=== PATIENT | male | born 1995 | race Caucasian/White ===

== ENCOUNTER 2021-04-06 07:55 | Emergency (ER) | payer OTHER, SELFPAY ==
[2021-04-06 07:56] VITALS: BP 137/72; PULSE 72; RESP 18; TEMP 36.4; O2SAT 99; BMI 27.5
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
[2021-04-06] MEDS: iohexol 300 mg/mL 100 mL Btl IV (08:30)
[2021-04-06 08:33] LABS: Basophils % 0.4 %; Eosinophils # 0.2 10^3/uL (0.0-0.8); Eosinophils % 2.9 %; Hematocrit 48.3 % (42.0-52.0); Hemoglobin 16.3 g/dL (11.7-16.6); Mean Corpuscular HGB Conc 33.7 g/dL (30.0-36.0); Mean Corpuscular Hemoglobin 31.2 pg (28.0-34.0); Mean Corpuscular Volume 92.4 fL (80-94); Monocytes # 0.7 10^3/uL (0.2-0.9); Monocytes % 8.3 %; Neutrophils # 4.85 10^3/uL (1.8-7.7); Neutrophils % 62.1 %; Nucleated Red Blood Cells % 0 %; Platelet Count 218 10^3/cmm (130-400); Red Blood Count 5.23 10^6/uL (4.1-5.3); Red Cell Distribution Width 12.4 % (12.1-15.1); White Blood Count 7.8 10^3/uL (4.0-10.0)
[2021-04-06 09:01] LABS: Alanine Aminotransferase 27 U/L (0-41); Alkaline Phosphatase 74 IU/L (40-130); Anion Gap 10.9 (5-19); Aspartate Amino Transferase 28 U/L (0-40); Blood Urea Nitrogen 10 mg/dL (6-20); Calcium 9.1 mg/dL (8.5-10.5); Carbon Dioxide 26 mmol/L (22-29); Globulin 2.7 g/dL (1.3-4.6); Glomerular Filtration Rate 82.2 mL/min (90-130); Glucose 98 mg/dL (65-115); Osmolality Calculated 289 mOsm/kg (285-295); Total Bilirubin 0.4 mg/dL (0.15-1.2); Total Protein 6.8 g/dL (6.6-8.7)
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
[2021-04-06 09:02] LABS: Sodium 140 mmol/L (136-145)
[2021-04-06 09:03] LABS: Albumin Level 4.1 g/dL (3.5-5.2); Chloride 107 mmol/L (98-107); Potassium 3.9 mmol/L (3.5-5.1)
[2021-04-06] MEDS: HYDROcodone-acetaminophen 5-325 mg Tablet 1 TAB PO (10:49)
[2021-04-06] MEDS: promethazine 25 mg Tablet PO (10:49)
[2021-04-06 10:52] VITALS: BP 122/86; PULSE 66; RESP 18; O2SAT 98
== END 2021-04-06 10:50 | disposition home or self-care (01) ==
PROVIDERS: Emergency Provider Family Medicine
DX: Z04.1 Encounter for examination and observation following transport accident (principal); V89.2XXA Person injured in unspecified motor-vehicle accident, traffic, initial encounter
CPT/HCPCS: 70450; 71260; 72125; 74177; 80053; 85025; 99283; Q0169; Q9967

== ENCOUNTER 2022-07-01 08:29 | Emergency (ER) | payer OTHER, SELFPAY ==
[2022-07-01 08:44] VITALS: BP 170/93; PULSE 43; RESP 16; TEMP 36.4; O2SAT 99; BMI 25.0
--- NOTE | 2022-07-01 09:18 | CT_ITS ---
WS: [id number] CT HEAD TECHNIQUE: Noncontrast CT of the head obtained from the skullbase to the vertex. CLINICAL INFORMATION: sudden onset headache wi exertion COMPARISON: April 06, 2021 DLP: 1106.[address] scans at [facility] use at least one of these dose optimization techniques: automated e xposure control; mA and/or kV adjustment per patient size (includes targeted exams where dose is matc hed to clinical indication); or iterative reconstruction. FINDINGS: No evidence of intracranial hemorrhage or mass effect. Ventricular system and basal cisterns are cruz nt. No extra-axial fluid collections. No evidence of mass or mass effect. Normal young-white different iation. Mild mucosal thickening ethmoid air cells. Opacification RIGHT mastoid air cells. LEFT mastoid air ce lls well aerated. CT/CT head wo con* [id number] IMPRESSION: 1. No evidence of intracranial hemorrhage or mass effect. 2. Opacification RIGHT mastoid air cells. 3. No acute intracranial findings.
--- NOTE | 2022-07-01 09:22 | ED_ITS ---
HPI - Headache General: Chief Complaint: Headache Stated Complaint: Severe headache Time Seen by Provider: 07/01/22 08:39 Source: patient Mode of arrival: ambulatory History of Present Illness: 26-year-old male presents emergency room with complaint of headache for the last 2 days with nausea and vomiting. No recent trauma. Denies history of migraines. He is not on any anticoagulants. No recent trauma. MD elicited complaint: headache Onset (ago): minute(s) Location: frontal Severity: mild Quality & Timing: throbbing Exacerbating factors: none Relieving factors: nothing Associated symptoms: Deny chest pain, confusion, cough, diaphoresis, eye pain, eye redness, fever(s), lightheadedness, loss of vision, malaise, nausea, neck stiffness, numbness, paresthesias, photophobia, pre-syncope, rash, seizures, short of breath, sound sensitivity, syncope, vomiting or weakness Treatments prior to arrival: none Review of Systems Const: Denies: fever(s), chills, fatigue, malaise or diaphoresis ENMT: Denies: throat pain, ear or mastoid pain, nasal discharge or nasal conge stion Card: Denies: chest pain, lightheadedness, syncope or pre-syncope Resp: Denies: dyspnea GI: Denies: abdominal pain, nausea or vomiting : Denies: flank pain, difficulty urinating, dysuria, urinary frequency or urinary urgency Skin/Breast: Denies: rash Neuro: Denies: confusion PFS ED PFSH: Medical History (Updated 07/07/22 @ 16:32 by Teto Tripp DO) No significant past medical history Surgical History (Updated 07/07/22 @ 16:32 by Teto Tripp DO) No pertinent past surgical history Physical Exam 2 Const: COMMON NORMALS: no acute distress GENERAL APPEARANCE: cooperative and comfortable ORIENTATION/CONSCIOUSNESS: Yes awake, Yes oriented to person, Yes oriented to place and Yes oriented to time HENMT: COMMON NORMALS: normocephalic, atraumatic, hearing grossly normal bilaterally, external ears normal, EAC's normal, TM's normal bilaterally, Normal nasal mucous membranes and turbinates present, moist oral mucous membranes and oropharynx normal HEAD & SCALP: normocephalic and atraumatic NOSE: Normal nasal mucous membranes and turbinates present EXTERNAL EAR: Yes external ears normal EXTERNAL AUDITORY CANAL: EAC's normal TYMPANIC MEMBRANE: TM's normal bilaterally Eye: COMMON NORMALS: Equal, round and reactive pupils present, EOMs intact bilaterally, conjunctivae normal and no scleral icterus CONJUNCTIVA: Yes conj unctivae normal PUPIL: Yes Equal, round and reactive pupils present DIRECT OPHTHALMOSCOPY: No photophobia Neck/C-Spine: COMMON NORMALS: full ROM, no lymphadenopathy, supple and no JVD Lymph: LYMPHATIC: no lymphadenopathy noted and no lymphedema noted Resp: COMMON NORMALS: normal respiratory effort, No retractions, No use of accessory muscles and clear to auscultation bilaterally AUSCULTATION: clear to auscultation bilaterally Cardio: COMMON NORMALS: no JVD, regular rate, regular rhythm and No murmurs present (Cardio) RATE: regular rate RHYTHM: regular rhythm GI: COMMON NORMALS: Soft to palpation and No hepatosplenomegaly present AUSCULTATION: Yes normoactive bowel sounds PALPATION: Yes Soft to palpation, No Tenderness to palpation present (GI), No Guarding due to palpation present (GI) and Yes No hepatosplenomegaly present Extremity: COMMON NORMALS: normal to inspection, capillary refill normal, no clubbing, cyanosis or edema, no calf tenderness and no pedal edema Neuro: SENSORIUM/ORIENTATION: Yes oriented to person, Yes oriented to place and Yes oriented to time Skin: COMMON NORMALS: no rashes or lesions noted GENERAL SKIN EXAM: no r ashes or lesions noted Course Vital Signs: Vital signs: Vital Signs Temperature 97.6 F 07/01/22 08:44 Pulse Rate 72 07/01/22 14:22 Respiratory Rate 14 07/01/22 14:22 Blood Pressure 132/72 07/01/22 14:22 Pulse Oximetry 98 07/01/22 09:30 MDM - Headache Medical Decision Making Symptoms improved. Discharge home follow-up with primary care Medical Records I reviewed the patient's medical records. Lab Data I reviewed the patient's lab results. : 07/01/22 09:45 07/01/22 09:[address] 07/01/22 09:18 IMPRESSION: 1. No evidence of intracranial hemorrhage or mass effect. 2. Opacification RIGHT mastoid air cells. 3. No acute intracranial findings. Head/Neck CTA 07/01/22 11:30 IMPRESSION: Normal CTA head neck Laboratory Results WBC 8.2 10^3/uL (4.0-10.0) 07/01/22 09:45 RBC 5.87 10^6/uL (4.1-5.3) H 07/01/22 09:45 Hgb 18.3 g/dL (11.7-16.6) H 07/01/22 09:45 Hct 54.0 % (42.0-52.0) H 07/01/22 09:45 MCV 92.0 fl (80-94) 07/01/22 09:45 MCH 31.2 pg (28.0-34.0) 07/01/22 09:45 MCHC 33.9 g/dL (30.0-36.0) 07/01/22 09:45 RDW 12.7 % (12.1-15.1) 07/01/22 09:45 Plt Count 239 10^3/cmm (130-400) 07/01/22 09:45 MPV 11.3 fL (7.4-10.4) H 07/01/22 09:45 Neut % (Auto) 60.4 % 07/01/22 09:45 Lymph % (Auto) 28.9 % 07/01/22 09:45 [place] % (Auto) 7.2 % 07/01/22 09:45 Eos % (Auto) 2.6 % 07/01/22 09:45 Baso % (Auto) 0.4 % 07/01/22 09:45 Neut # (Auto) 4.98 10^3/uL (1.8-7.7) 07/01/22 09:45 Lymph # (Auto) 2.4 10^3/uL (0.8-4.8) 07/01/22 09:45 [place] # (Auto) 0.6 10^3/uL (0.2-0.9) 07/01/22 09:45 Eos # (Auto) 0.2 10^3/uL (0.0-0.8) 07/01/22 09:45 Baso # (Auto) 0.0 10^3/uL (0.0-0.1) 07/01/22 09:45 Nucleated RBC % (auto) 0 % 07/01/22 09:45 Nucleated RBCs # 0.0 /100WBC 07/01/22 09:45 Sodium 140 mmol/L (136-145) 07/01/22 09:45 Potassium 4.0 mmol/L (3.5-5.1) 07/01/22 09:45 Chloride 103 mmol/L (98-107) 07/01/22 09:45 Carbon Dioxide 24 mmol/L (22-29) 07/01/22 09:45 Anion Gap 17.0 (5-19) 07/01/22 09:45 BUN 9 mg/dL (6-20) 07/01/22 09:45 Creatinine 1.0 mg/dL (0.7-1.2) 07/01/22 09:45 GFR Calculation 91.0 mL/min (90-130) 07/01/22 09:45 Glucose 98 mg/dL (65-115) 07/01/22 09:45 Calculated Osmolality 289 mOsm/kg (285-295) 07/01/22 09:45 Calcium 9.8 mg/dL (8.5-10.5) 07/01/22 09:45 Total Bilirubin 0.3 mg/dL (0.15-1.2) 07/01/22 09:45 AST 37 U/L (0-40) 07/01/22 09:45 ALT 50 U/L (0-41) H 07/01/22 09:45 Alkaline Phosphatase 88 U/L (40-130) 07/01/22 09:45 Total Protein 8.3 g/dL (6.6-8.7) 07/01/22 09:45 Albumin 5.0 g/dL (3.5-5.2) 07/01/22 09:45 Globulin 3.3 g/dL (1.3-4.6) 07/01/22 09:45 Discharge Plan Discharge Patient Disposition: Home Clinical Impression: Headache Condition: Stable Prescriptions: New promethazine 25 mg tablet 25 mg PO Q6H PRN (Reason: headache) Qty: 20 0RF diclofenac sodium 75 mg tablet,delayed release (DR/EC) 75 mg PO Q12H PRN (Reason: pain) Qty: 20 0RF No Action Tylenol Ex Str Rapid Release 500 mg Tablet 1,500 mg PO .ONCE Excedrin Migraine 250-250-65 mg Tablet 2 tab PO Q6H PRN (Reason: Migraine Headache) Discharge Orders: Discharge ED (Routine); Ordered 07/01/22 Ordered By: Teto Tripp Discharge Diet: Usual diet Discharge Activity: Limit activity as instructed Patient Instructions: Opioid Safety Activity Restrictions/Additional Instructions: college or university business manager will make arrangements for you to have a outpatient MRI of the head and a consult with the neurologist. Coding Level of Care Code ED Wool Handler for Makayla Alfaro Exam Problem Focused
[2022-07-01 09:30] VITALS: RESP 15; O2SAT 98
[2022-07-01] MEDS: promethazine 25 mg/mL SDV 1 mL IM (09:30)
[2022-07-01] MEDS: HYDROmorphone 1 mg/mL INJ 1 mL 0.5 MG IVP (09:30)
[2022-07-01 10:12] LABS: Basophils % 0.4 %; Eosinophils # 0.2 10^3/uL (0.0-0.8); Eosinophils % 2.6 %; Hemoglobin 18.3 g/dL (11.7-16.6); Lymphocytes # 2.4 10^3/uL (0.8-4.8); Lymphocytes % 28.9 %; Mean Corpuscular HGB Conc 33.9 g/dL (30.0-36.0); Mean Corpuscular Hemoglobin 31.2 pg (28.0-34.0); Mean Platelet Volume 11.3 fL (7.4-10.4); Monocytes # 0.6 10^3/uL (0.2-0.9); Monocytes % 7.2 %; Neutrophils # 4.98 10^3/uL (1.8-7.7); Neutrophils % 60.4 %; Nucleated Red Blood Cells % 0 %; Platelet Count 239 10^3/cmm (130-400); Red Blood Count 5.87 10^6/uL (4.1-5.3); Red Cell Distribution Width 12.7 % (12.1-15.1); White Blood Count 8.2 10^3/uL (4.0-10.0)
[2022-07-01 10:40] LABS: Alanine Aminotransferase 50 U/L (0-41); Alkaline Phosphatase 88 U/L (40-130); Aspartate Amino Transferase 37 U/L (0-40); Blood Urea Nitrogen 9 mg/dL (6-20); Calcium 9.8 mg/dL (8.5-10.5); Carbon Dioxide 24 mmol/L (22-29); Chloride 103 mmol/L (98-107); Globulin 3.3 g/dL (1.3-4.6); Glucose 98 mg/dL (65-115); Osmolality Calculated 289 mOsm/kg (285-295); Sodium 140 mmol/L (136-145); Total Bilirubin 0.3 mg/dL (0.15-1.2); Total Protein 8.3 g/dL (6.6-8.7)
--- NOTE | 2022-07-01 11:30 | CT_ITS ---
WS: [id number] CTA HEAD AND NECK TECHNIQUE: Contrast enhanced CTA of the head and neck with coronal and sagittal reformatted images an d maximum intensity projection (MIP) images. NASCET criteria utilized. CLINICAL INFORMATION: sudden onset headache COMPARISON: None. DLP: 484.[address] scans at [facility] use at least one of these dose optimization techniques: automated e xposure control; mA and/or kV adjustment per patient size (includes targeted exams where dose is matc hed to clinical indication); or iterative reconstruction. FINDINGS: RIGHT: RIGHT common carotid artery is patent. No significant RIGHT ICA stenosis. RIGHT ICA is patent to the skull base. Tortuous RIGHT cervical ICA. LEFT: LEFT common carotid artery is patent. No significant LEFT ICA stenosis. LEFT ICA is patent to t he skull base. Tortuous LEFT cervical ICA. INTRACRANIAL CTA: Codominant and patent vertebral arteries bilaterally. Proximal basilar artery is patent. Normal vascu larity to the LITHOGRAPHIC PLATE MAKER APPRENTICE territory bilaterally. Both ICAs are patent at the skull base. Normal vascularity to the CLAUDIO and MCA territories bilaterally . No flow-limiting stenosis. Opacification RIGHT mastoid air cells. Mild mucosal thickening ethmoid air cells. Normal dural venou s sinuses. CT/CT angio headneck* [id number] IMPRESSION: Normal CTA head neck
[2022-07-01] MEDS: iohexol 350 mg/mL 100 mL Btl IV (12:07)
[2022-07-01 14:22] VITALS: BP 132/72; PULSE 72; RESP 14
== END 2022-07-01 14:24 | disposition home or self-care (01) ==
PROVIDERS: Emergency Provider Family Medicine
DX: R51.9 Headache, unspecified (principal)
CPT/HCPCS: 70450; 70496; 70498; 80053; 85025; 96372; 96374; 99285; J1170; J2550; Q9967